=== PATIENT | female | born 1985 | race Two or more races ===

== ENCOUNTER 2020-10-01 12:44 | Emergency (ER) | payer MEDICAID ==
[~2020-10-01] VITALS: Ht 167.6 cm; Wt 65.8 kg
--- NOTE | 2020-10-01 12:57 | NUR ---
The patient bibs c/o left groin pain since yesterday 8/10 pain scale. Will continue to monitor the patient.
[2020-10-01 13:10] LABS: BASOPHILS % (AUTO) 0.5 % (0.0-2.0); EOSINOPHILS % (AUTO) 0.9 % (0.0-6.0); HEMATOCRIT 39 % (33-45); LYMPHOCYTES # (AUTO) 2.2 /CMM (0.8-4.8); LYMPHOCYTES % (AUTO) 43.1 % (20.0-44.0); MEAN CORPUSCULAR HGB CONC 33 g/dl (31.0-36.0); MEAN CORPUSCULAR VOLUME 90 fL (82-100); MONOCYTES # (AUTO) 0.3 /CMM (0.1-1.30); MONOCYTES % (AUTO) 6.5 % (2.0-12.0); NEUTROPHILS # (AUTO) 2.4 /CMM (1.8-8.9); PLATELET COUNT (AUTO) 259 /CMM (150-450)
[2020-10-01 13:13] LABS: BILIRUBIN,URINE Negative (NEGATIVE); COLOR,URINE YELLOW (YELLOW); LEUKOCYTE ESTERASE ,URINE Trace (NEGATIVE); NITRITE, URINE Negative (NEGATIVE); PH,URINE 5.5 (5.0-8.0); PROTEIN,URINE Negative (NEGATIVE); UGLUCOSE Negative (NEGATIVE)
[2020-10-01 13:16] LABS: CALCIUM, SERUM 8.9 mg/dL (8.5-10.1); CREATININE 0.8 mg/dL (0.6-1.3); POTASSIUM 3.7 mmol/L (3.5-5.1)
[2020-10-01 13:21] LABS: BACTERIA,URINE Few /HPF (None Seen); SQUAMOUS EPITHELIAL CELL,UR Few /HPF (None Seen)
[2020-10-01] MEDS ORDERED: IBUPROFEN 600 MG TABLET PO ONE (14:30)
[2020-10-01] MEDS ORDERED: IBUP-1955 PO (14:32)
[2020-10-01] MEDS ORDERED: IBUPROFEN 600 MG TABLET ONE (14:32)
--- NOTE | 2020-10-01 14:42 | NUR ---
lab madea aware not to forget to run chlamydia/gc test on the urine.
[2020-10-01 14:43] VITALS: BP 138/75
--- NOTE | 2020-10-01 14:43 | NUR ---
Patient discharged to home in stable condition. Written and verbal after care instructions given. Patient verbalizes understanding of instruction.
== END 2020-10-01 14:44 | disposition home or self-care (01) ==
LOC: ER 12:47
DX: R10.32 Left lower quadrant pain (principal)
CPT/HCPCS: 36415; 76856-TC; 80048-TC; 81001; 84703-TC; 85025-TC; 87491; 87591